=== PATIENT | female | born 1965 | race Caucasian/White ===

== ENCOUNTER 2017-09-14 19:16 | Emergency (ER) | payer SELFPAY ==
--- NOTE | 2017-09-14 19:37 | ED Physician Documentation ---
General Adult - HISTORIAN Historian: patient - HPI Stated Complaint: urinary problems Chief Complaint: Nausea,Vomiting,Diarrhea Onset: days ago (2) Timing: still present Severity: moderate Further Comments: yes (she states two days ago she started with fever "I think 99.3" and she states she has not had any food or drink to intake in over 2 days. "I cant keep anything down" She states she has lower abdominal and flank pain. She has had nausea vomiting and fever. She has not had any OTC meds. She denies any injury. no blood in urine) Last known Well Date: 09/12/17 Last Known Well Time: 08:00 Last known Well Code/Unknown Code: Unknown - ROS CONST: fever EYES/ENT: none CVS/RESP: none GI/: vomiting, nausea MS/SKIN/LYMPH: none NEURO/PSYCH: denies: headache, dizziness - PAST HX Past History: other (depression ) Other History: none Surgeries/Procedures: Immunizations: referred to PCP Allergies/Adverse Reactions: Allergies Allergy/AdvReac Type Severity Reaction Status Date / Time Penicillins Allergy Severe Anaphylaxis Verified 09/14/17 19:30 Home Medications: Ambulatory Orders Medication Instructions Recorded Albuterol Sulfate [Proair HFA] 2 inh IH Q4H PRN #1 hfa.[email or web address] 11/07/14 Citalopram Hydrobromide [Celexa] 20 mg D 11/07/14 Lisinopril [Prinivil] 10 mg PO QD #30 tablet 11/07/14 Meperidine HCl [Demerol] 50 mg PO Q6 PRN #10 tablet 04/23/16 Ondansetron HCl Rapdis [Zofran Odt] 4 mg PO Q8 #30 tab 09/14/17 - SOCIAL HX Smoking History: cigarettes Alcohol Use: none Drug Use: none - FAMILY HX Family History: No - VITAL SIGNS Vital Signs: Vital Signs Temp Pulse Resp BP Pulse Ox 98.3 F 97 H 20 144/78 99 09/14/17 19:24 09/14/17 19:24 09/14/17 19:24 09/14/17 19:24 09/14/17 19:24 - REVIEWED ASSESSMENTS Nursing Assessment Reviewed: Yes Vitals Reviewed: Yes Progress - Progress Progress: 2049: she reports her pain is still 8/10 on 1/10 scale. Sharp and cramping in nature. No change in position. DG 2144: Pain is a 3 out of 10. No nausea 2199: Pain is a 5 out of 10. Nausea is starting. She is refusing to be admitted. States she has been admitted for this before and due to insurance reasons and symptoms she does not feel she needs to be admitted. She is aware of the risk and benefits. at the bedside he is agreeable to plan to go home and care for symptoms and return for any non control of symptoms. she is aware to rest her gut. DG ED Results Lab/Radiology - Radiology Radiology Impressions: CT of the abdomen and pelvis without contrast CLINICAL HISTORY: Lower abdominal pain for 4 days. TECHNIQUE: CT of the abdomen and pelvis is performed without oral or intravenous administration of contrast. Sagittal and coronal reconstructions are performed by the technologist. FINDINGS: The visualized lung bases are clear. The liver and spleen demonstrate normal attenuation without focal defect. Gallbladder is normally distended. Pancreas is prominent with stranding in the peripancreatic fat and thickening of Gerota' s fascia on the left andthe lateroconal fascia consistent with acute pancreatitis. Kidneys are of normal size, shape and position. Vascular calcification is present in the abdominal aorta without evidence of aneurysm. There are paired inferior vena cavae below the level of the renal veins. Appendix is visualized and is within normal limits. Structures related to the gastrointestinal tract are unremarkable. Free fluid is seen in the pelvis. IMPRESSION: Acute pancreatitis. Vascular calcification. Negative appendix. Free fluid in the pelvis. Lumbar spondylosis. Electronically signed on Sep 14, 2017 9:18:21 PM TOP DISTRIBUTION EXECUTIVE by: Demetris Baxter General Adult Physical Exam - PHYSICAL EXAM GENERAL APPEARANCE: mild distress EENT: eye inspection normal CVS: reg rate & rhythm, heart sounds normal, equal pulses, no murmur ABDOMEN: soft, no organomegaly, normal bowel sounds, guarding (lower abdomen bilaterally. CVA tenderness mild bilaterally ) BACK: CVA tenderness (R), CVA tenderness (L) SKIN: warm/dry, normal color NEURO: oriented X3, CN's nml as tested, motor nml Discharge Clincal Impression: Pancreatitis Qualifiers: Chronicity: acute Pancreatitis type: other Acute pancreatitis complication: unspecified Qualified Code(s): K85.80 - Other acute pancreatitis without necrosis or infection Prescriptions: Ondansetron HCl Rapdis [Zofran Odt] 4 mg PO Q8 #30 tab Referrals: Natasha Mcpherson MD [Primary Care Provider] - 2 Days Additional Instructions: She did not want to be admitted due to finical concerns and she states she doesnt feel they could do anything for her they cannot do here. She feels that if she gets proper meds she can be ok to go home. she does understand the implications we discussed in full about admission. at bedside. She will return to ER if any concerns or she cannot control her symptoms. NPO and clear liquids as tolerated. Meds for nausea and pain. DG Condition: Stable Disposition: 01 HOME, SELF-CARE Decision to Admit: NO Date of Decison to Admit: 09/14/17 Decision Time: 22:02
[2017-09-14] MEDS ORDERED: 0.9 % SODIUM CHLORIDE 1,000 ML IV ONE (20:01)
[2017-09-14] MEDS ORDERED: KETOROLAC TROMETHAMINE 30 MG/1ML VIAL IVP ONE (20:02)
[2017-09-14 20:30] LABS: BASOPHILS % 0.2 (0.0-1.5); EOSINOPHILS % 2.8 % (0.0-6.8); MEAN CORPUSCULAR HEMOGLOBIN 34.5 pg (28.0-34.0); MONOCYTES % 5.4 % (0.0-11.0); NEUTROPHILS # 5.1 # k/uL (1.4-7.7)
[2017-09-14 20:39] LABS: eGFR (African) > 60; eGFR (Non-African) > 60
[2017-09-14] MEDS ORDERED: fentaNYL CITRATE/PF 100 MCG/ 2ML AMP IVP ONE ×2 (20:52→21:58)
--- NOTE | 2017-09-14 21:21 | Diagnostic Imaging Report ---
BAMBI RUIZ [facility] [address] [facility] [address] [place], [place]. [address] Report Submission Date: Sep 14, 2017 9:18:21 PM SCHOOL CUSTODIAN Patient Study Name: SESAR HANSON Date: Sep 14, 2017 9:00:47 PM SCHOOL CUSTODIAN Modality Type: CT\SR Gender: F Description: CT ABD & PELVIS W/O CO : 61 Institution: [facility] Physician: BAMBI RUIZ CT of the abdomen and pelvis without contrast CLINICAL HISTORY: Lower abdominal pain for 4 days. TECHNIQUE: CT of the abdomen and pelvis is performed without oral or intravenous administration of contrast. Sagittal and coronal reconstructions are performed by the technologist. FINDINGS: The visualized lung bases are clear. The liver and spleen demonstrate normal attenuation without focal defect. Gallbladder is normally distended. Pancreas is prominent with stranding in the peripancreatic fat and thickening of Gerota' s fascia on the left andthe lateroconal fascia consistent with acute pancreatitis. Kidneys are of normal size, shape and position. Vascular calcification is present in the abdominal aorta without evidence of aneurysm. There are paired inferior vena cavae below the level of the renal veins. Appendix is visualized and is within normal limits. Structures related to the gastrointestinal tract are unremarkable. Free fluid is seen in the pelvis. IMPRESSION: Acute pancreatitis. Vascular calcification. Negative appendix. Free fluid in the pelvis. Lumbar spondylosis. Electronically signed on Sep 14, 2017 9:18:21 PM SCHOOL CUSTODIAN by: Demetris LIANG
[2017-09-14] MEDS ORDERED: ONDANSETRON HCL 4 MG TAB.RAPDIS PO ONE (21:59)
[2017-09-14] MEDS ORDERED: ONDANSETRON HCL/PF 4 MG/ 2ML VIAL IVP ONE (21:59)
[2017-09-14 22:20] VITALS: BP 168/91
[2017-09-15 06:07] LABS: APPEARANCE,URINE CLEAR (CLEAR); COLOR,URINE YELLOW (YELLOW)
[2017-09-15 06:08] LABS: OCCULT BLOOD,URINE NEGATIVE (NEGATIVE); UROBILINOGEN URINE 0.2 Eu (0.2-1.0)
== END 2017-09-14 22:18 | disposition home or self-care (01) ==
LOC: ED 19:16
DX: K85.80 Other acute pancreatitis without necrosis or infection (principal)
CPT/HCPCS: 74176; 80053; 81002; 83690; 85025; 87400; J1885; J2405; J3010; J7030; 96361; 96374; 96375; 99283; S1016

== ENCOUNTER 2017-11-11 17:11 | Emergency (ER) | payer SELFPAY ==
[2017-11-11] MEDS ORDERED: PROMETHAZINE HCL 25 MG/ML VIAL IM ONE (18:05)
[2017-11-11 18:50] LABS: BASOPHILS % 0.3 (0.0-1.5); EOSINOPHILS % 1.4 % (0.0-6.8); MEAN CORPUSCULAR HEMOGLOBIN 33.6 pg (28.0-34.0); MEAN CORPUSCULAR VOLUME 97.4 fl (80.0-100.0); NEUTROPHILS # 5.8 # k/uL (1.4-7.7)
[2017-11-11 19:08] LABS: eGFR (African) > 60; eGFR (Non-African) > 60
[2017-11-11] MEDS ORDERED: SIMETHICONE 80 MG TAB.CHEW PO ONE (19:29)
--- NOTE | 2017-11-11 19:29 | ED Physician Documentation ---
Abdominal Pain - HISTORIAN Historian: patient - HPI Stated Complaint: Abdominal pain Chief Complaint: Abdominal Pain Onset: days ago (since Thursday) Duration: constant Timing: worse Context: denies: out of country travel, bad food, recent trauma Severity: severe Quality: pain Associated Symptoms: nausea. denies: fever, chills, vomiting Exacerbated by: nothing Relieved by: nothing Further Comments: yes (52 year old female patient presents with complaint of abdominal pain and abdominal cramping since Thursday. Was seen by PCP on Thursday, encouraged to use laxative. Patient reports small BM today, denies diarrhea, denies hard stool. C/O nausea, denies vomiting, fever or chills. Requesting narcotic for pain 06/30. Reports using MOM at 1330 today, small result.) - ROS CONST: no problems GI/: constipation. denies: black stools, bloody urine, bloody stools, dark urine, problems urinating CVS/RESP: none EYES/ENT: none MS/SKIN/LYMPH: none NEURO/PSYCH: none - SOCIAL HX Smoking History: cigarettes - FAMILY HX Family History: denies: none - PAST HX Past History: none Ischemic Bowel Risk Factors: none Other History: hypertension, other (depression) Home Medications: Ambulatory Orders Medication Instructions Recorded Citalopram Hydrobromide [Celexa] 20 mg D 11/07/14 Lisinopril [Prinivil] 10 mg PO QD #30 tablet 11/07/14 Promethazine HCl [Phenergan] 25 mg PO Q8H PRN #15 tablet 11/11/17 Allergies/Adverse Reactions: Allergies Allergy/AdvReac Type Severity Reaction Status Date / Time Penicillins Allergy Severe Anaphylaxis Verified 11/11/17 18:46 - VITAL SIGNS Vital Signs: Vital Signs Temp Pulse Resp BP Pulse Ox 99.6 F 82 17 140/68 98 11/11/17 17:13 11/11/17 19:52 11/11/17 19:52 11/11/17 19:52 11/11/17 19:52 - REVIEWED ASSESSMENTS Nursing Assessment Reviewed: Yes Vitals Reviewed: Yes Progress - Progress Progress: Prior to provider evaluation, patient came to desk requesting "I need pain medication now. [facility] How much longer do I have to wait?" Explained the ER was full, both nurses were with patients, she would be seen as soon as possible. Patient walked back to room, no grimacing, gait steady, upright posture. H&P completed. Patient requested "pain shot". Will medicate with promethazine for nausea and complaint of cramping. Reviewed lab and xray results with patient and , reassured pain was from gas and laxative used today. Patient requested prescription for pain medication. Encourage her to use OTC simethicone. Reviewed signs and symptoms to return to ER for. ED Results Lab/Radiology - Lab Results Lab Results: Lab Results 11/11/17 11/11/17 18:35 18:35 WBC 7.50 K/ul K/ul (4.00-12.00) RBC 4.22 M/ul M/ul (3.90-5.20) Hgb 14.2 g/dL g/dL (12.0-16.0) Hct 41.1 % % (34.5-46.5) MCV 97.4 fl fl (80.0-100.0) MCH 33.6 pg pg (28.0-34.0) MCHC 34.5 g/dL g/dL (30.0-36.0) RDW 12.6 % % (11.3-14.3) Plt Count 212 K/mm3 K/mm3 (130-400) Neut % (Auto) 76.2 % % (39.0-79.0) Lymph % (Auto) 16.7 % % (16.0-50.0) [place] % (Auto) 4.0 % % (0.0-11.0) Eos % (Auto) 1.4 % % (0.0-6.8) Baso % (Auto) 0.3 (0.0-1.5) Neut # (Auto) 5.8 # k/uL # k/uL (1.4-7.7) Lymph # (Auto) 1.3 # k/uL # k/uL (0.6-4.0) [place] # (Auto) 0.3 # k/uL # k/uL (0.0-0.9) Eos # (Auto) 0.1 # k/uL # k/uL (0.0-0.6) Baso # (Auto) 0.0 # k/uL # k/uL (0.0-0.5) Reactive Lymphs % 1.3 % % (0.0-5.0) Reactive Lymphs # 0.1 # k/uL # k/uL (0.0-0.8) Sodium 132 mmol/L L mmol/L (136-145) Potassium 3.3 mmol/L L mmol/L (3.5-5.1) Chloride 89 mmol/L L mmol/L (98-107) Carbon Dioxide 25 mmol/L mmol/L (22-30) BUN 12 mg/dL mg/dL (7-17) Creatinine 0.70 mg/dL mg/dL (0.52-1.04) Estimated Creat Clear 102 Est GFR ( Amer) > 60 (60 - ) Est GFR (Non-Af Amer) > 60 (60 - ) Glucose 85 mg/dL mg/dL (74-106) Calcium 9.6 mg/dL mg/dL (8.4-10.2) Total Bilirubin 1.3 mg/dL mg/dL (0.2-1.3) AST 34 U/L U/L (15-46) ALT 35 U/L U/L (13-69) Alkaline Phosphatase 107 U/L U/L (38-126) Total Protein 7.4 g/dL g/dL (6.3-8.2) Albumin 4.5 g/dL g/dL (3.5-5.0) - Radiology Radiology Impressions: Obstructive series, 3 images HISTORY The abdominal pain, nausea. FINDINGS Bowel gas pattern is normal. There is no obstruction, free intraperitoneal air or pathologic calcification. IMPRESSION Normal bowel gas pattern. Electronically signed on Nov 11, 2017 7:28:02 PM LOCK OPERATOR by: Geovanny Loya - Orders Orders: ED Orders Category Date Time Status Place IV Lock 1T Care 11/11/17 17:41 Active ABD COMPLETE [RAD] Stat Exams 11/11/17 Completed CBC/PLATELET/DIFF Stat Lab 11/11/17 18:35 Completed CMP Stat Lab 11/11/17 18:35 Completed Promethazine HCl [Phenergan] Med 11/11/17 18:05 Discontinued 25 mg IM NOW ONE Simethicone [Gas-X] Med 11/11/17 19:29 Discontinued 160 mg PO NOW ONE Abdominal Pain Physical Exam - Physical Exam General Appearance: mild distress EENT: eye inspection normal, CORA RESPIRATORY: no resp distress, chest non-tender, breath sounds normal CVS: reg rate & rhythm, heart sounds normal, equal pulses, no murmur, no gallop , PMI nml, no JVD, no friction rub, 24 ABDOMEN: soft, no organomegaly, normal bowel sounds (normal to hyperactive), no abdominal bruit, no distension, tenderness (c/o tenderness all over; assessment revealed negative McBurney's and negative Carmen's) SKIN: normal color, warm/dry, NR, INT, PAL, DR EXTREMITIES: non-tender, normal range of motion, no evidence of injury, no edema , J, TURNTABLE OPERATOR NEURO: oriented X3, CN's nml as tested, motor nml, sensation nml Vital Signs: Vital Signs Temp Pulse Resp BP Pulse Ox 99.6 F 82 17 140/68 98 11/11/17 17:13 11/11/17 19:52 11/11/17 19:52 11/11/17 19:52 11/11/17 19:52 Discharge Clincal Impression: Gas pain Abdominal pain Qualifiers: Abdominal location: generalized Qualified Code(s): R10.84 - Generalized abdominal pain Prescriptions: Promethazine HCl [Phenergan] 25 mg PO Q8H PRN #15 tablet PRN Reason: Nausea / Vomiting Referrals: Natasha Mcpherson MD [Primary Care Provider] - 2 Days Additional Instructions: Use over the counter Gas-ex, simethicone or beano as needed for pain per package instruction. . Diet: Clear liquids Sprite/7-up Juices apple, white grape Gatorade/Powerade Jello Popsicles When tolerating clear liquids, advance to bland/brat diet - such as crackers, rice, Bananas, apples/applesauce or toast Return to the emergency department or call your doctor, if you are having severe abdominal pain, fever >101.0, or if there is blood in the vomit or diarrhea, or you cannot keep down liquids or solid food. Condition: Stable Disposition: 01 HOME, SELF-CARE Decision to Admit: NO Decision Time: 19:29
--- NOTE | 2017-11-11 19:35 | Diagnostic Imaging Report ---
COTY DUMONT (LENS MOUNTER) - ER [facility] [address] [facility].[address] [address] Report Submission Date: Nov 11, 2017 7:28:02 PM CHINESE LANGUAGE PROFESSOR Patient Study Name: SESAR HANSON Date: Nov 11, 2017 7:10:27 PM CHINESE LANGUAGE PROFESSOR Modality Type: DX Gender: F Description: ABDOMEN : 61 Institution: [facility] Physician: COTY DUMONT (LENS MOUNTER) - ER Obstructive series, 3 images HISTORY The abdominal pain, nausea. FINDINGS Bowel gas pattern is normal. There is no obstruction, free intraperitoneal air or pathologic calcification. IMPRESSION Normal bowel gas pattern. Electronically signed on Nov 11, 2017 7:28:02 PM CHINESE LANGUAGE PROFESSOR by: Geovanny LIANG
[2017-11-11 19:54] VITALS: BP 140/68
== END 2017-11-11 19:52 | disposition home or self-care (01) ==
LOC: ED 17:11
DX: R10.84 Generalized abdominal pain (principal); R14.3 Flatulence
CPT/HCPCS: 74019; 80053; 85025; 99282; S1016

== ENCOUNTER 2018-11-23 20:39 | Inpatient (IN) | payer SELFPAY ==
[2018-11-23] MEDS ORDERED: ONDANSETRON HCL/PF 4 MG/ 2ML VIAL IVP ONE (21:05)
[2018-11-23] MEDS ORDERED: fentaNYL CITRATE/PF 100 MCG/2 ML INJ. IV ONE ×2 (21:37→23:38)
[2018-11-23] MEDS ORDERED: 0.9 % SODIUM CHLORIDE 1,000 ML IV ONE (21:37)
[2018-11-23 22:05] LABS: BASOPHILS % 0.3 (0.0-1.5); EOSINOPHILS % 5.3 % (0.0-6.8); MONOCYTES % 4.5 % (0.0-11.0); NEUTROPHILS # 4.4 # k/uL (1.4-7.7)
[2018-11-23 22:11] LABS: eGFR (Non-African) > 60
--- NOTE | 2018-11-23 22:21 | ED Physician Documentation ---
Abdominal Pain - HISTORIAN Historian: patient - HPI Stated Complaint: N/V with stomach pains Chief Complaint: Abdominal Pain Additonal Information: Report Submission Date: Nov 23, 2018 11:36:37 PM MILL FEEDER Patient Study Name: SESAR HANSON Date: Nov 23, 2018 10:40:20 PM MILL FEEDER Modality Type: CT\SR Gender: F Description: CT ABD PELVIS W/ CON Onset: days ago (2) Duration: constant Timing: worse Context: denies: out of country travel, bad food Severity: severe Quality: pain, sharp, stabbing Associated Symptoms: chills, nausea, vomiting Exacerbated by: food Relieved by: nothing - ROS CONST: no problems GI/: denies: constipation CVS/RESP: none EYES/ENT: none MS/SKIN/LYMPH: denies: leg swelling NEURO/PSYCH: headache - SOCIAL HX Smoking History: cigarettes Alcohol Use: none Drug Use: none - FAMILY HX Family History: none - PAST HX Past History: other (pancreatitis) Ischemic Bowel Risk Factors: none Other History: none Home Medications: Ambulatory Orders Medication Instructions Recorded Citalopram Hydrobromide [Celexa] 20 mg PO D 11/07/14 Trazodone HCl 50 mg PO HS 11/23/18 Allergies/Adverse Reactions: Allergies Allergy/AdvReac Type Severity Reaction Status Date / Time Penicillins Allergy Severe Anaphylaxis Verified 11/23/18 22:21 - VITAL SIGNS Vital Signs: Vital Signs Temp Pulse Resp BP Pulse Ox 98.4 F 70 14 181/86 99 11/23/18 20:39 11/23/18 20:39 11/23/18 20:39 11/23/18 20:39 11/23/18 20:39 - REVIEWED ASSESSMENTS Nursing Assessment Reviewed: Yes Vitals Reviewed: Yes Progress - Progress Progress: 0112 Discussed with June Calixto NP, agrees with admission. ED Results Lab/Radiology - Lab Results Lab Results: Lab Results 11/23/18 11/23/18 11/23/18 22:55 21:50 21:50 WBC RBC Hgb Hct MCV MCH MCHC RDW Plt Count Neut % (Auto) Lymph % (Auto) [place] % (Auto) Eos % (Auto) Baso % (Auto) Neut # (Auto) Lymph # (Auto) [place] # (Auto) Eos # (Auto) Baso # (Auto) Sodium Potassium Chloride Carbon Dioxide BUN Creatinine Est GFR ( Amer) Est GFR (Non-Af Amer) Glucose Calcium Total Bilirubin AST ALT Alkaline Phosphatase Troponin I < 0.03 ng/mL L ng/mL (0.03-0.06) Total Protein Albumin Lipase 567 U/L H U/L (23-300) Urine Color Yellow (YELLOW) Urine Appearance Clear (CLEAR) Urine pH 7.0 (5.0 - 8.0) Ur Specific [place] 1.020 (1.010-1.030) Urine Protein Negative mg/dL mg/dL (NEGATIVE) Urine Ketones 2+ mg/dL H mg/dL (NEGATIVE) Urine Occult Blood Trace-intact H (NEGATIVE) Urine Nitrite Negative (NEGATIVE) Urine Bilirubin Negative (NEGATIVE) Urine Urobilinogen 0.2 Eu Eu (0.2-1.0) Ur Leukocyte Esterase Negative (NEGATIVE) Urine Glucose Negative mg/dL mg/dL (NEGATIVE) 11/23/18 11/23/18 21:50 21:50 WBC 5.90 K/ul K/ul (4.00-12.00) RBC 3.57 M/ul L M/ul (3.90-5.20) Hgb 12.1 g/dL g/dL (12.0-16.0) Hct 36.8 % % (34.5-46.5) MCV 103.0 fl H fl (80.0-100.0) MCH 34.0 pg pg (28.0-34.0) MCHC 32.9 g/dL g/dL (30.0-36.0) RDW 14.9 % H % (11.3-14.3) Plt Count 222 K/mm3 K/mm3 (130-400) Neut % (Auto) 74.7 % % (39.0-79.0) Lymph % (Auto) 15.2 % L % (16.0-50.0) [place] % (Auto) 4.5 % % (0.0-11.0) Eos % (Auto) 5.3 % % (0.0-6.8) Baso % (Auto) 0.3 (0.0-1.5) Neut # (Auto) 4.4 # k/uL # k/uL (1.4-7.7) Lymph # (Auto) 0.9 # k/uL # k/uL (0.6-4.0) [place] # (Auto) 0.3 # k/uL # k/uL (0.0-0.9) Eos # (Auto) 0.3 # k/uL # k/uL (0.0-0.6) Baso # (Auto) 0.0 # k/uL # k/uL (0.0-0.5) Sodium 135 mmol/L L mmol/L (136-145) Potassium 3.6 mmol/L mmol/L (3.5-5.1) Chloride 100 mmol/L mmol/L (98-107) Carbon Dioxide 27 mmol/L mmol/L (22-30) BUN 5 mg/dL L mg/dL (7-17) Creatinine 0.42 mg/dL L mg/dL (0.52-1.04) Est GFR ( Amer) > 60 (60 - ) Est GFR (Non-Af Amer) > 60 (60 - ) Glucose 122 mg/dL H mg/dL (74-106) Calcium 8.6 mg/dL mg/dL (8.4-10.2) Total Bilirubin 0.9 mg/dL mg/dL (0.2-1.3) AST 21 U/L U/L (15-46) ALT 19 U/L U/L (13-69) Alkaline Phosphatase 115 U/L U/L (38-126) Troponin I Total Protein 6.0 g/dL L g/dL (6.3-8.2) Albumin 3.8 g/dL g/dL (3.5-5.0) Lipase Urine Color Urine Appearance Urine pH Ur Specific [place] Urine Protein Urine Ketones Urine Occult Blood Urine Nitrite Urine Bilirubin Urine Urobilinogen Ur Leukocyte Esterase Urine Glucose - Radiology Radiology Impressions: Report Submission Date: Nov 23, 2018 11:36:37 PM MILL FEEDER Patient Study Name: SESAR HANSON Date: Nov 23, 2018 10:40:20 PM MILL FEEDER Modality Type: CT\SR Gender: F Description: CT ABD PELVIS W/ CON : 61 Institution: [facility] Physician: WALT POLK CT abdomen and pelvis with contrast History: Epigastric pain and elevated lipase Technique: Helically acquired images were obtained from the hemidiaphragms to the pelvic floor the following IV but no oral contrast. Findings: There is ascites adjacent to both the liver and the spleen. The liver is diffusely low in attenuation consistent with hepatic steatosis. No focal hepatic masses are noted. No gallstones are seen. The spleen is normal in size. The pancreas is abnormal. At the head to proximal body of the pancreas, there is a large cyst measuring 4.0 x 4.3 cm in greatest dimension. Within the tail of pancreas, there is a 2 cm cyst. Between the tail of the pancreas and the stomach, there is a 4.0 x 3.0 cm cyst. The adjacent gastric wall enhances to a greater degree than typical, suggesting gastritis, possibly reactive to the adjacent process. These multifocal cystic masses of the pancreas are most consistent with multifocal pseudocysts in this patient with elevated lipase. The adrenal glands and kidneys are unremarkable. Small and large bowel loops are normal in caliber. There is a small amount of ascites extending into the pelvis. The abdominal aorta is heavily atherosclerotic but not aneurysmal. The uterus, adnexa and bladder are unremarkable. Lung bases are clear. Findings consistent with degenerative disc disease are present at L1/2 and L2/3. Impression: There is ascites adjacent to both liver and spleen and tracking into the pelvis. Hepatic steatosis. The pancreas is abnormal. As described in the body of the report, there is a large cyst at the pancreatic head to proximal body. There is a cyst in the pancreatic tail and there is a cyst between the pancreatic tail and stomach. These cystic lesions are consistent with multiple pseudocysts. The gastric rugae enhance to a greater degree than typical, suggesting gastritis,which may be reactive to the adjacent pseudocyst. Heavy aortic atherosclerosis. Follow-up imaging to ensure resolution of all of the cystic lesions would be recommended. Electronically signed on Nov 23, 2018 11:36:37 PM MILL FEEDER by: Suad Jones - Orders Orders: ED Orders Category Date Time Status Place IV Lock 1T Care 11/23/18 21:[address] ABD & PELVIS W/ CON Stat Exams 11/23/18 Taken CBC/PLATELET/DIFF Routine Lab 11/23/18 21:50 Completed CMP Routine Lab 11/23/18 21:50 Completed LIPASE Stat Lab 11/23/18 21:50 Completed TROPONIN I (cTnI) Stat Lab 11/23/18 21:50 Completed UA MACRO DIP ONLY Routine Lab 11/23/18 22:55 Completed 0.9 % Sodium Chloride [Normal Saline] 1,000 ml Med 11/23/18 21:37 Discontinued IV Q1H Ondansetron HCl/Pf [Zofran] Med 11/23/18 21:05 Discontinued 4 mg IVP NOW ONE fentaNYL CITRATE/PF [Sublimaze] Med 11/23/18 21:37 Discontinued 25 mcg IV NOW ONE fentaNYL CITRATE/PF [Sublimaze] Med 11/23/18 23:38 Discontinued 25 mcg IV NOW ONE Abdominal Pain Physical Exam - Physical Exam General Appearance: mild distress EENT: CORA NECK: supple RESPIRATORY: no resp distress, chest non-tender, breath sounds normal CVS: tachycardia ABDOMEN: tenderness (epigastric), distended BACK: no CVA tenderness SKIN: warm/dry EXTREMITIES: non-tender NEURO: oriented X3, mood/affect nml Vital Signs: Vital Signs Temp Pulse Resp BP Pulse Ox 98.4 F 70 14 181/86 99 11/23/18 20:39 11/23/18 20:39 11/23/18 20:39 11/23/18 20:39 11/23/18 20:39 Discharge Clincal Impression: Pancreatitis, acute Qualifiers: Pancreatitis type: unspecified pancreatitis type Acute pancreatitis complication: no infection or necrosis Qualified Code(s): K85.90 - Acute pancreatitis without necrosis or infection, unspecified Referrals: Natasha Mcpherson MD [Primary Care Provider] - 2 Days Condition: Fair Disposition: ADMITTED INPATIENT Decision to Admit: [id number] Date of Decison to Admit: 11/24/18 Decision Time: 01:13
[2018-11-23 23:31] LABS: APPEARANCE,URINE CLEAR (CLEAR); COLOR,URINE YELLOW (YELLOW); OCCULT BLOOD,URINE TRACE-INTACT (NEGATIVE); UROBILINOGEN URINE 0.2 Eu (0.2-1.0)
[2018-11-24] MEDS ORDERED: fentaNYL CITRATE/PF 100 MCG/2 ML INJ. IV ONE (01:14)
[2018-11-24] MEDS ORDERED: ONDANSETRON HCL/PF 4 MG/ 2ML VIAL IVP PRN (01:55)
[2018-11-24] MEDS ORDERED: HYDROmorphone HCL/PF 1 MG/ML VIAL IVP PRN (01:55)
[2018-11-24] MEDS ORDERED: HYDROmorphone HCL/PF 2 MG/ML VIAL ONE (02:17)
[2018-11-24] MEDS: 0.9 % SODIUM CHLORIDE 1,000 ML IV SCH ×3 (02:20→22:37)
[2018-11-24 02:57] VITALS: BMI 20.8
--- NOTE | 2018-11-24 06:20 | Diagnostic Imaging Report ---
[place] [facility] [address] [facility] [address] [place], [place]. [address] Report Submission Date: Nov 23, 2018 11:36:37 PM HEAD USHER Patient Study Name: SESAR HANSON Date: Nov 23, 2018 10:40:20 PM HEAD USHER Modality Type: CT\SR Gender: F Description: CT ABD PELVIS W/ CON : 61 Institution: [facility] Physician: WALT POLK CT abdomen and pelvis with contrast History: Epigastric pain and elevated lipase Technique: Helically acquired images were obtained from the hemidiaphragms to the pelvic floor the following IV but no oral contrast. Findings: There is ascites adjacent to both the liver and the spleen. The liver is diffusely low in attenuation consistent with hepatic steatosis. No focal hepatic masses are noted. No gallstones are seen. The spleen is normal in size. The pancreas is abnormal. At the head to proximal body of the pancreas, there is a large cyst measuring 4.0 x 4.3 cm in greatest dimension. Within the tail of pancreas, there is a 2 cm cyst. Between the tail of the pancreas and the stomach, there is a 4.0 x 3.0 cm cyst. The adjacent gastric wall enhances to a greater degree than typical, suggesting gastritis, possibly reactive to the adjacent process. These multifocal cystic masses of the pancreas are most consistent with multifocal pseudocysts in this patient with elevated lipase. The adrenal glands and kidneys are unremarkable. Small and large bowel loops are normal in caliber. There is a small amount of ascites extending into the pelvis. The abdominal aorta is heavily atherosclerotic but not aneurysmal. The uterus, adnexa and bladder are unremarkable. Lung bases are clear. Findings consistent with degenerative disc disease are present at L1/2 and L2/3. Impression: There is ascites adjacent to both liver and spleen and tracking into the pelvis. Hepatic steatosis. The pancreas is abnormal. As described in the body of the report, there is a large cyst at the pancreatic head to proximal body. There is a cyst in the pancreatic tail and there is a cyst between the pancreatic tail and stomach. These cystic lesions are consistent with multiple pseudocysts. The gastric rugae enhance to a greater degree than typical, suggesting gastritis,which may be reactive to the adjacent pseudocyst. Heavy aortic atherosclerosis. Follow-up imaging to ensure resolution of all of the cystic lesions would be recommended. Electronically signed on Nov 23, 2018 11:36:37 PM HEAD USHER by: Suad LIANG
[2018-11-24] MEDS ORDERED: PANTOPRAZOLE SODIUM INJ. 40 MG VIAL ONE (06:38)
[2018-11-24] MEDS ORDERED: SODIUM CHLORIDE IV ONE (06:39)
[2018-11-24] MEDS ORDERED: WATER FOR INJECTION,STERILE 20 ML VIAL IJ ONE (06:41)
[2018-11-24] MEDS ORDERED: 0.9 % SODIUM CHLORIDE 100 ML IV ONE (06:43)
[2018-11-24] MEDS: PANTOPRAZOLE SODIUM 80 MG in 0.9 % SODIUM CHLORIDE 50 ML IV SCH (06:56)
--- NOTE | 2018-11-24 07:37 | History and Physical Report ---
History of Present Illnes - History of Present Illness Reason for Visit: Abdominal pain with nausea, vomiting, and diarrhea History of Present Illness: Patient is a 53-year-old female that presented to the ER last night with "severe" abdominal that she described as sharp and stabbing with a 2 day history of nausea, vomiting, and diarrhea. Patient was noted to be dehydrated and 1 liter of NS was given along with Zofran IVP for her nausea and vomiting. She also received a 100mcg of Fentanyl in the ER with c/o abdominal pain of 10/10. She denied alcohol use in the ER but history suggested alcohol use and patient admitted to alcohol use this morning. She has received Dilaudid every 4 hours thru the night for abdominal pain- pt appears to be comfortable this morning- however, she is requesting pain medications. Patient states that vomiting is gone but she still has some nausea. Discussed with patient again; her results of her CT and the effects that are being caused to her pancreas. She voiced understanding- we will continue to keep patient NPO this morning and give IVF for hydration- she is receiving protonix IV for abdominal discomfort, Zofran 4 mg IV for nausea and vomiting, and Dilaudid every 4 hrs. for abdominal pain. Patient is also noted to have an elevated blood pressure- we will monitor closely. - Past Medical History Cardiac: HTN (history of HTN- states she does not take meds anymore) Gastrointestinal: Gastritis, Other (Pancreatitis) Psych: Anxiety, Depression Renal/: Acute renal failure - Past Surgical History Past Surgical History: (x1) - Past Social History Smoke: 1 pack per day Alcohol: Heavy Drugs: None Lives: With Family Domestic Violence: Negative - Health Maintenance Health Maintenance: denies: Influenza Vaccine Influenza Vaccine: No (refused influenza) Pneumonia Vaccine: Yes Resuscitation Status: Resusciation Status Resuscitation Status Full Code - Unable to Obtain History Unable to Obtain: No Review of Systems - Review of Systems Constitutional: Fever, Chills, Weakness Eyes: negative: pain, vision change ENT: negative: Ear Pain, Ear Discharge, Throat Pain Respiratory: negative: Cough, Dry, Shortness of Breath Cardiovascular: Light Headedness. negative: Chest Pain, Palpitations Gastrointestinal: Nausea, Vomiting, Abdominal Pain, Diarrhea Genitourinary: negative: Dysuria Musculoskeletal: negative: Back Pain Skin: negative: Rash Neurological: Weakness - Medications/Allergies Allergies/Adverse Reactions: Allergies Allergy/AdvReac Type Severity Reaction Status Date / Time Penicillins Allergy Severe Anaphylaxis Verified 11/23/18 22:21 Home Medications: Home Medications RX: Trazodone HCl 50 mg PO HS 11/23/18 Current Inpatient Medications: Current Inpatient Medications Citalopram Hydrobromide (Celexa) 20 mg PO D [facility] Enoxaparin Sodium (Lovenox) 30 mg SQ DAILY [facility] Stop: 12/08/18 08:59 Hydromorphone HCl (Dilaudid) 1 mg IVP Q4H PRN PRN Reason: pain Last Admin: 11/24/18 02:15 Dose: 1 mg Sodium Chloride (Normal Saline) 1,000 mls @ 125 mls/hr IV Q10H [facility]ATHER Last Admin: 11/24/18 02:20 Dose: 125 mls/hr Pantoprazole Sodium 80 mg/ (Sodium Chloride) 50 mls @ 100 mls/hr IV 0700 [facility] Last Admin: 11/24/18 06:56 Dose: 100 mls/hr Nicotine (Habitrol 14mg) 1 patch TD DAILY [facility] Ondansetron HCl (Zofran) 4 mg IVP Q6H PRN PRN Reason: Nausea / Vomiting Trazodone HCl (Desyrel) 50 mg PO [facility] Exam - Exam Vital Signs: Vital Signs (72 hours) 11/23/18 11/24/18 11/24/18 20:39 01:22 02:00 Temperature 98.4 F 97.5 F L Pulse Rate [ 70 73 70 Left Pulse ox] Respiratory 14 14 16 Rate Blood Pressure 150/83 [Left Arm] Blood Pressure 181/86 175/94 [Right Arm] O2 Sat by Pulse 99 98 99 Oximetry 11/24/18 11/24/18 11/24/18 02:41 03:08 06:00 Temperature 97.5 F L 97.8 F Pulse Rate [ 70 70 72 Left Pulse ox] Respiratory 16 16 16 Rate Blood Pressure 159/88 [Left Arm] Blood Pressure 150/83 [Right Arm] O2 Sat by Pulse 99 99 Oximetry 11/24/18 06:21 Temperature Pulse Rate [ 72 Left Pulse ox] Respiratory Rate Blood Pressure [Left Arm] Blood Pressure [Right Arm] O2 Sat by Pulse Oximetry General: Alert, Oriented to Person, Oriented to Place, Oriented to Time, Mild distress HEENT: PERRLA, EOMI, Mouth Mucous membr. moist/[place], Nose Mucous membr. moist/[place] Neck: Normal Range of Motion Carotids: No bruit Lungs: Clear to auscultation, Normal air movement, Speaks full Sentences Cardiovascular: Regular rate, Normal S1, Normal S2 Peripheral Edema: None Peripheral Pulses: 2+ Abdomen: Soft, Other (tenderness on palpation), Decreased Bowel Sounds Integumentary: Warm, Dry, Pale Extremities: Normal pulses, No tenderness/swelling Neurological: Normal speech, Strength Equal Bilat, Sensation intact Psych/Mental Status: Appropriate Affect - Laboratory Results Laboratory Results: Laboratory Results 11/23/18 11/23/18 11/23/18 21:50 21:50 21:50 WBC 5.90 RBC 3.57 L Hgb 12.1 Hct 36.8 MCV 103.0 H MCH 34.0 MCHC 32.9 RDW 14.9 H Plt Count 222 Neut % (Auto) 74.7 Lymph % (Auto) 15.2 L [place] % (Auto) 4.5 Eos % (Auto) 5.3 Baso % (Auto) 0.3 Neut # (Auto) 4.4 Lymph # (Auto) 0.9 [place] # (Auto) 0.3 Eos # (Auto) 0.3 Baso # (Auto) 0.0 Sodium 135 L Potassium 3.6 Chloride 100 Carbon Dioxide 27 BUN 5 L Creatinine 0.42 L Est GFR ( Amer) > 60 Est GFR (Non-Af Amer) > 60 Glucose 122 H Calcium 8.6 Total Bilirubin 0.9 AST 21 ALT 19 Alkaline Phosphatase 115 Troponin I Total Protein 6.0 L Albumin 3.8 Lipase 567 H Urine Color Urine Appearance Urine pH Ur Specific [place] Urine Protein Urine Ketones Urine Occult Blood Urine Nitrite Urine Bilirubin Urine Urobilinogen Ur Leukocyte Esterase Urine Glucose 11/23/18 11/23/18 21:50 22:55 WBC RBC Hgb Hct MCV MCH MCHC RDW Plt Count Neut % (Auto) Lymph % (Auto) [place] % (Auto) Eos % (Auto) Baso % (Auto) Neut # (Auto) Lymph # (Auto) [place] # (Auto) Eos # (Auto) Baso # (Auto) Sodium Potassium Chloride Carbon Dioxide BUN Creatinine Est GFR ( Amer) Est GFR (Non-Af Amer) Glucose Calcium Total Bilirubin AST ALT Alkaline Phosphatase Troponin I < 0.03 L Total Protein Albumin Lipase Urine Color Yellow Urine Appearance Clear Urine pH 7.0 Ur Specific [place] 1.020 Urine Protein Negative Urine Ketones 2+ H Urine Occult Blood Trace-intact H Urine Nitrite Negative Urine Bilirubin Negative Urine Urobilinogen 0.2 Ur Leukocyte Esterase Negative Urine Glucose Negative Assessment/Plan - Assessment/Plan (1) Pancreatitis, acute Status: Acute Current Visit: Yes Qualifiers: Pancreatitis type: unspecified pancreatitis type Acute pancreatitis complication: no infection or necrosis Qualified Code(s): K85.90 - Acute pancreatitis without necrosis or infection, unspecified Plan: Will keep patient NPO, IVF for hydration due to NPO status with nausea, Will give Protonix IV for GI upset, IV pain meds for abdominal pain, will monitor lab work. (2) Dehydration Status: Acute Current Visit: Yes Plan: Will give IVFs- patient will remain NPO (3) Nausea & vomiting Status: Acute Current Visit: Yes Qualifiers: Vomiting type: bilious vomiting Qualified Code(s): R11.14 - Bilious vomiting Plan: Will give IVFs, IV antiemetics, and IV Protonix (4) Anxiety and depression Status: Acute Current Visit: Yes Plan: Will continue with home medications as patient tolerated VTE Assessment - RISK FACTOR SCORE VTE RISK FACTOR SCORES: AGE 40-60 YEARS, SMOKER - RISK VTE MODERATE RISK: SCORE OF 2 (RISK PROXIMAL DVT 2-4%) PROPHYAXIS NEEDED (Lovenox daily)
[2018-11-24 08:06] LABS: BASOPHILS % 0.3 (0.0-1.5); EOSINOPHILS % 7.1 % (0.0-6.8); MEAN CORPUSCULAR HEMOGLOBIN 34.3 pg (28.0-34.0); MONOCYTES % 7.2 % (0.0-11.0); NEUTROPHILS # 3.9 # k/uL (1.4-7.7)
[2018-11-24] MEDS: HYDROmorphone HCL/PF 2 MG/ML VIAL IVP PRN ×4 (08:19→23:49)
[2018-11-24] MEDS: CITALOPRAM HYDROBROMIDE 20 MG TABLET PO SCH (08:23)
[2018-11-24 08:25] LABS: eGFR (Non-African) > 60
[2018-11-24] MEDS: NICOTINE 14mg PATCH.TD24 TD SCH ×2 (08:25→10:14)
[2018-11-24] MEDS: ENOXAPARIN SODIUM 30 MG/0.3 ML DISP.SYRIN SQ SCH (08:25)
[2018-11-24] MEDS: traZODone HCL 50 MG TABLET PO SCH (20:44)
[2018-11-25] MEDS: 0.9 % SODIUM CHLORIDE 1,000 ML IV SCH (04:19)
[2018-11-25] MEDS: HYDROmorphone HCL/PF 2 MG/ML VIAL IVP PRN ×2 (05:27→12:41)
[2018-11-25] MEDS: PANTOPRAZOLE SODIUM 80 MG in 0.9 % SODIUM CHLORIDE 50 ML IV SCH (06:16)
[2018-11-25 07:27] LABS: eGFR (Non-African) > 60
[2018-11-25] MEDS: ENOXAPARIN SODIUM 30 MG/0.3 ML DISP.SYRIN SQ SCH (09:13)
[2018-11-25] MEDS: NICOTINE 14mg PATCH.TD24 TD SCH (09:14)
[2018-11-25] MEDS: CITALOPRAM HYDROBROMIDE 20 MG TABLET PO SCH (09:16)
[2018-11-25] MEDS: traZODone HCL 50 MG TABLET PO SCH (19:45)
[2018-11-25] MEDS: KETOROLAC TROMETHAMINE 30 MG/1ML VIAL IV PRN (19:49)
[2018-11-26] MEDS: KETOROLAC TROMETHAMINE 30 MG/1ML VIAL IV PRN ×2 (02:48→08:29)
--- NOTE | 2018-11-26 04:57 | Inpatient Progress Note ---
Subjective - Required Recertification Statement I anticipate X number of days because-include discharge plan: 1 - Review of Systems Events since last encounter: Patient has been NPO- she had labs drawn this morning which showed a blood sugar in the upper 30s- nursing had patient drink OJ with sugar- she did very well and blood sugar bumped up to 72. Lipase was back to normal this morning. We will start advancing her diet as tolerated. She has not required anything for nausea or vomiting. She has been requiring IV pain medication every 4 hours- we will discontinue Dilaudid and decrease patient to IV Toradol- we will get patient up today and walk- she is continuing to use incentive spirometer. We will continue with IVF's, will start checking blood sugars every 6 hours- no future concern of hypoglycemia due to allowing patient to start eating today and we will monitor for increasing abdominal pain, nausea or vomiting. General: Night Sweats, Malaise HEENT: Denies: Head Aches, Visual Changes Pulmonary: Cough (occasional- using incentive spirometer). Denies: Dyspnea Cardiovascular: Light Headedness (with low blood sugar) Gastrointestinal: Abdominal Pain (improving). Denies: Nausea, Vomiting, Diarrhea Genitourinary: Denies: Dysuria Musculoskeletal: Denies: Back Pain Neurological: Denies: Weakness, Seizures Objective - Exam Vitals and I&O: Vital Signs Temp 97.3 F L 11/26/18 01:56 Pulse 88 11/26/18 02:40 Resp 18 11/26/18 02:40 BP 156/85 11/26/18 01:56 Pulse Ox 99 11/26/18 01:56 Intake & Output 11/25/18 11/25/18 11/26/18 11:59 23:59 11:59 Intake Total 60 250 10 Output Total 675 200 Balance -615 50 10 Intake: IV 10 10 Right Forearm 10 10 Oral 60 240 Output: Urine 675 200 Other: Voiding Method Toilet Toilet Toilet # Voids 1 # Bowel Movements 0 General: Alert, Oriented to Person, Oriented to Place, Oriented to Time, Cooperative, No acute distress HEENT: PERRLA, Mouth Mucous membr. moist/[place], Nose Mucous membr. moist/[place] Neck: Supple, +2 carotid pulse wo bruit Lungs: Normal air movement, Speaks full Sentences, Rhonchi (scattered throughout- using incentive spirometer) Cardiovascular: Regular rate, Normal S1, Normal S2 Abdomen: Normal bowel sounds, Soft, No tenderness. No: Distended Extremities: No edema, Normal pulses, No tenderness/swelling Skin: Warm, Dry, Pale Neurological: Normal gait, Normal speech, Strength Equal Bilat, Normal tone, Sensation intact Psych/Mental Status: Mental status NL, Mood NL, Appropriate Affect - Results Results: Laboratory Results WBC 6.50 K/ul (4.00-12.00) 11/24/18 06:00 RBC 3.46 M/ul (3.90-5.20) L 11/24/18 06:00 Hgb 11.9 g/dL (12.0-16.0) L 11/24/18 06:00 Hct 35.9 % (34.5-46.5) 11/24/18 06:00 MCV 104.0 fl (80.0-100.0) H 11/24/18 06:00 MCH 34.3 pg (28.0-34.0) H 11/24/18 06:00 MCHC 33.0 g/dL (30.0-36.0) 11/24/18 06:00 RDW 14.9 % (11.3-14.3) H 11/24/18 06:00 Plt Count 205 K/mm3 (130-400) 11/24/18 06:00 Neut % (Auto) 59.8 % (39.0-79.0) 11/24/18 06:00 Lymph % (Auto) 25.6 % (16.0-50.0) 11/24/18 06:00 [place] % (Auto) 7.2 % (0.0-11.0) 11/24/18 06:00 Eos % (Auto) 7.1 % (0.0-6.8) H 11/24/18 06:00 Baso % (Auto) 0.3 (0.0-1.5) 11/24/18 06:00 Neut # (Auto) 3.9 # k/uL (1.4-7.7) 11/24/18 06:00 Lymph # (Auto) 1.7 # k/uL (0.6-4.0) 11/24/18 06:00 [place] # (Auto) 0.5 # k/uL (0.0-0.9) 11/24/18 06:00 Eos # (Auto) 0.5 # k/uL (0.0-0.6) 11/24/18 06:00 Baso # (Auto) 0.0 # k/uL (0.0-0.5) 11/24/18 06:00 Sodium 139 mmol/L (136-145) 11/25/18 05:00 Potassium 3.2 mmol/L (3.5-5.1) L 11/25/18 05:00 Chloride 104 mmol/L (98-107) 11/25/18 05:00 Carbon Dioxide 19 mmol/L (22-30) L 11/25/18 05:00 BUN 8 mg/dL (7-17) 11/25/18 05:00 Creatinine 0.48 mg/dL (0.52-1.04) L 11/25/18 05:00 Estimated Creat Clear 135 11/25/18 05:00 Est GFR ( Amer) > 60 (60-) 11/25/18 05:00 Est GFR (Non-Af Amer) > 60 (60-) 11/25/18 05:00 Glucose 38 mg/dL (74-106) L* 11/25/18 05:00 Calcium 8.2 mg/dL (8.4-10.2) L 11/25/18 05:00 Total Bilirubin 0.9 mg/dL (0.2-1.3) 11/25/18 05:00 AST 21 U/L (15-46) 11/25/18 05:00 ALT 17 U/L (13-69) 11/25/18 05:00 Alkaline Phosphatase 91 U/L (38-126) 11/25/18 05:00 Troponin I < 0.03 ng/mL (0.03-0.06) L 11/23/18 21:50 Total Protein 5.4 g/dL (6.3-8.2) L 11/25/18 05:00 Albumin 3.2 g/dL (3.5-5.0) L 11/25/18 05:00 Lipase 188 U/L (23-300) 11/25/18 05:00 Urine Color Yellow (YELLOW) 11/23/18 22:55 Urine Appearance Clear (CLEAR) 11/23/18 22:55 Urine pH 7.0 (5.0 - 8.0) 11/23/18 22:55 Ur Specific [place] 1.020 (1.010-1.030) 11/23/18 22:55 Urine Protein Negative mg/dL (NEGATIVE) 11/23/18 22:55 Urine Ketones 2+ mg/dL (NEGATIVE) H 11/23/18 22:55 Urine Occult Blood Trace-intact (NEGATIVE) H 11/23/18 22:55 Urine Nitrite Negative (NEGATIVE) 11/23/18 22:55 Urine Bilirubin Negative (NEGATIVE) 11/23/18 22:55 Urine Urobilinogen 0.2 Eu (0.2-1.0) 11/23/18 22:55 Ur Leukocyte Esterase Negative (NEGATIVE) 11/23/18 22:55 Urine Glucose Negative mg/dL (NEGATIVE) 11/23/18 22:55 Ethyl Alcohol < 10.0 mg/dL (0.0-10.0) 11/24/18 Unknown Assessment/Plan - Assessment/Plan (1) Pancreatitis, acute Status: Acute Current Visit: Yes Qualifiers: Pancreatitis type: unspecified pancreatitis type Acute pancreatitis complication: no infection or necrosis Qualified Code(s): K85.90 - Acute pancreatitis without necrosis or infection, unspecified Assessment: Patient had a low blood sugar of 30s- corrected with OJ and sugar- we will advance diet IV pain med switched from dilaudid to toradol IVF continued- will stop once patient is tolerating diet. (2) Dehydration Status: Acute Current Visit: Yes Plan: Will continue IVF until patient is tolerating diet (3) Nausea & vomiting Status: Acute Current Visit: Yes Qualifiers: Vomiting type: bilious vomiting Qualified Code(s): R11.14 - Bilious vomiting Plan: Appears to be controlled- will advance diet today- will treat nausea and vomiting if arises (4) Anxiety and depression Status: Acute Current Visit: Yes Plan: Stable on home medications
--- NOTE | 2018-11-26 05:01 | Discharge Summary ---
Discharge Summary - Discharge Sumary History of Present Illness: Patient is a 53-year-old female that presented to the ER last night with "severe" abdominal that she described as sharp and stabbing with a 2 day history of nausea, vomiting, and diarrhea. Patient was noted to be dehydrated and 1 liter of NS was given along with Zofran IVP for her nausea and vomiting. She also received a 100mcg of Fentanyl in the ER with c/o abdominal pain of 10/10. She denied alcohol use in the ER but history suggested alcohol use and patient admitted to alcohol use this morning. She has received Dilaudid every 4 hours thru the night for abdominal pain- pt appears to be comfortable this morning- however, she is requesting pain medications. Patient states that vomiting is gone but she still has some nausea. Discussed with patient again; her results of her CT and the effects that are being caused to her pancreas. She voiced understanding- we will continue to keep patient NPO this morning and give IVF for hydration- she is receiving protonix IV for abdominal discomfort, Zofran 4 mg IV for nausea and vomiting, and Dilaudid every 4 hrs. for abdominal pain. Patient is also noted to have an elevated blood pressure- we will monitor closely. Condition at Discharge: Stable Home Medications: Ambulatory Orders Medication Instructions Recorded Citalopram Hydrobromide [Celexa] 20 mg PO D 11/07/14 Trazodone HCl 50 mg PO HS 11/23/18 Lisinopril [Prinivil] 10 mg PO DAILY 30 Days #30 tablet 11/26/18 Ondansetron HCl Rapdis [Zofran Odt] 4 mg PO Q8 PRN #15 tab 11/26/18 Consultations this Visit: None Procedures this Visit: None Allergies/Adverse Reactions: Allergies Allergy/AdvReac Type Severity Reaction Status Date / Time Penicillins Allergy Severe Anaphylaxis Verified 11/26/18 13:33 Discharge Summary: Patient is a 53-year-old female who has done well during admission. She has been tolerating a regular diet with minimal abdominal discomfort and no nausea or vomiting starting yesterday. Her lab work is returning to baseline. She has tolerated decreasing IV pain medication from Dilaudid to Toradol. She has been up walking and using incentive spirometer- she had some scattered rhonchi throughout and we discussed stopping tobacco use. We had another discussion about no alcohol use. She is ready to go home today- she states that she is feeling much better and is ready to be in her own home. She has not required any antiemetics > 24 hrs, she has been receiving IV toradol for pain which has been controlling pain > 24 hrs. We discussed starting her back on Lisinopril 10 mg for HTN (she use to take this), Zofran as needed, and Tramadol prn pain. She is to follow up with her PCP next week. Hospital Course: IVF, IV antiemetics, IV pain medications, Incentive spirometer, nicotine patch, and an episode of hypoglycemia easily corrected - Final Diagnosis (1) Pancreatitis, acute Problems: Resolved- LIpase WNL- Discussed NO ALCOHOL USE Right or Left: Right (2) Dehydration Problems: Corrected- increase fluid intake (no caffeine- no alcohol) Right or Left: Right (3) Nausea & vomiting Problems: Corrected- tolerating a regular diet Right or Left: Right (4) Anxiety and depression Problems: Stable- continue home medications Right or Left: Right
[2018-11-26] MEDS: PANTOPRAZOLE SODIUM 80 MG in 0.9 % SODIUM CHLORIDE 50 ML IV SCH ×2 (06:21→06:43)
[2018-11-26] MEDS: CITALOPRAM HYDROBROMIDE 20 MG TABLET PO SCH (08:18)
[2018-11-26] MEDS: ENOXAPARIN SODIUM 30 MG/0.3 ML DISP.SYRIN SQ SCH (08:18)
[2018-11-26] MEDS: NICOTINE 14mg PATCH.TD24 TD SCH (08:18)
[2018-11-26 10:25] VITALS: BP 141/95
== END 2018-11-26 10:00 | disposition home or self-care (01) | DRG 440 ==
LOC: ED 20:39 → SOUTH 11-24 01:17
PROVIDERS: ADMIT Nurse Practitioner Family; ATTEND Family Medicine
DX: K85.90 Acute pancreatitis without necrosis or infection, unspecified (principal); E86.0 Dehydration; F32.9 Major depressive disorder, single episode, unspecified; F41.9 Anxiety disorder, unspecified; F17.210 Nicotine dependence, cigarettes, uncomplicated
CPT/HCPCS: 74177; 80053; 80320; 81002; 83690; 84484; 85025; 99283; J1170; J1650; J1885; J2405; J3010; J7030; Q9967; 99222; 99232; 99238; G0480; S1016

== ENCOUNTER 2018-11-26 13:06 | Emergency (ER) | payer SELFPAY ==
--- NOTE | 2018-11-26 13:45 | ED Physician Documentation ---
Abdominal Pain - HISTORIAN Historian: patient - HPI Stated Complaint: Upper abdominal pain Chief Complaint: Abdominal Pain Onset: other (she was just discharged from the hospital but states the pain just started about one hour ago ) Duration: constant Timing: still present Context: denies: out of country travel, bad food, recent trauma Severity: moderate Quality: pain, cramping, sharp Associated Symptoms: nausea, vomiting Exacerbated by: nothing Relieved by: nothing (she tried meds given to her at discharge "they didnt touch the pain" ) Further Comments: yes (She was admitted on 11.23.18 with elevated pancreatic enzymes. per her hospital note and her report she was discharged with resolution of pain. She states she at breakfast this am and felt fine. She went to [facility] to fill her RX and she started to have abdominal pain and her husbad went to work so her son went to get her and brought her to the ER for pain. She states the pain is all over. She states she has nausea. She took her pain meds and nausea med with no relief. She has not had any other meds.) - ROS CONST: no problems GI/: other (discharged after a two day hospital stay for elevated pancreatic enzymes that were normal on 11.25.18) EYES/ENT: none MS/SKIN/LYMPH: none NEURO/PSYCH: none - SOCIAL HX Smoking History: cigarettes Alcohol Use: occasionally Drug Use: none - FAMILY HX Family History: none - PAST HX Past History: pancreatitis Ischemic Bowel Risk Factors: none Other History: none Surgeries/Procedures: none Immunizations: UTD Home Medications: Ambulatory Orders Medication Instructions Recorded Citalopram Hydrobromide [Celexa] 20 mg PO D 11/07/14 Trazodone HCl 50 mg PO HS 11/23/18 Lisinopril [Prinivil] 10 mg PO DAILY 30 Days #30 tablet 11/26/18 Ondansetron HCl Rapdis [Zofran Odt] 4 mg PO Q8 PRN #15 tab 11/26/18 Allergies/Adverse Reactions: Allergies Allergy/AdvReac Type Severity Reaction Status Date / Time Penicillins Allergy Severe Anaphylaxis Verified 11/26/18 13:33 - VITAL SIGNS Vital Signs: Vital Signs Temp Pulse Resp BP Pulse Ox 77 18 166/87 94 11/26/18 18:05 11/26/18 18:05 11/26/18 18:05 11/26/18 18:05 - REVIEWED ASSESSMENTS Nursing Assessment Reviewed: Yes Vitals Reviewed: Yes Progress - Progress Progress: 1445: discussed current lab with hotel concierge provider [facility] - due to changes in pain will obtain CT and possible transfer due to possible surgical need DG 1450: discussed current findings and plan. She and son are agreeable DG 1539: states her pain is "a little" better - she is asking if she can still have more pain med. Will await CT results DG 1700: [facility] accepting transfer Dr Hodan BRO ED Results Lab/Radiology - Lab Results Lab Results: Lab Results 11/26/18 11/26/18 11/26/18 14:25 14:25 13:50 WBC RBC Hgb Hct MCV MCH MCHC RDW Plt Count Neut % (Auto) Lymph % (Auto) [place] % (Auto) Eos % (Auto) Baso % (Auto) Neut # (Auto) Lymph # (Auto) [place] # (Auto) Eos # (Auto) Baso # (Auto) Sodium Potassium Chloride Carbon Dioxide BUN Creatinine Estimated Creat Clear Est GFR ( Amer) Est GFR (Non-Af Amer) Glucose Calcium Total Bilirubin AST ALT Alkaline Phosphatase Total Protein Albumin Lipase Urine Color Yellow (YELLOW) Urine Appearance Clear (CLEAR) Urine pH 6.0 (5.0 - 8.0) Ur Specific [place] 1.025 (1.010-1.030) Urine Protein Negative mg/dL mg/dL (NEGATIVE) Urine Ketones 3+ mg/dL H mg/dL (NEGATIVE) Urine Occult Blood Trace-intact H (NEGATIVE) Urine Nitrite Negative (NEGATIVE) Urine Bilirubin Negative (NEGATIVE) Urine Urobilinogen 0.2 Eu Eu (0.2-1.0) Ur Leukocyte Esterase Negative (NEGATIVE) Urine Glucose Negative mg/dL mg/dL (NEGATIVE) Opiates Screen Non negative ng/mL H ng/mL (<300) Oxycodone Screen Negative ng/mL ng/mL (<100) Methadone Screen Negative ng/mL ng/mL (<200) Ur Barbiturates Screen Negative ng.mL ng.mL (<200) Tricyclic Antidepress Negative ng/mL ng/mL (<300) Phencyclidine Screen Negative ng/mL ng/mL (< 25) Amphetamines Screen Negative ng/mL ng/mL (<500) U Methamphetamines Scrn Negative ng/mL ng/mL (<500) MDMA Negative ng/mL ng/mL (<500) Benzodiazepines Screen Negative ng/mL ng/mL (<150) Urine Cocaine Screen Negative ng/mL ng/mL (<150) U Cannabinoids Screen Non negative ng/mL H ng/mL (< 50) Ethyl Alcohol < 10.0 mg/dL mg/dL (0.0-10.0) 11/26/18 11/26/18 13:50 13:50 WBC 8.10 K/ul K/ul (4.00-12.00) RBC 3.45 M/ul L M/ul (3.90-5.20) Hgb 11.9 g/dL L g/dL (12.0-16.0) Hct 35.9 % % (34.5-46.5) MCV 104.0 fl H fl (80.0-100.0) MCH 34.5 pg H pg (28.0-34.0) MCHC 33.1 g/dL g/dL (30.0-36.0) RDW 256.0 % H % (11.3-14.3) Plt Count 256 K/mm3 K/mm3 (130-400) Neut % (Auto) 78.6 % % (39.0-79.0) Lymph % (Auto) 11.4 % L % (16.0-50.0) [place] % (Auto) 4.1 % % (0.0-11.0) Eos % (Auto) 5.5 % % (0.0-6.8) Baso % (Auto) 0.4 (0.0-1.5) Neut # (Auto) 6.4 # k/uL # k/uL (1.4-7.7) Lymph # (Auto) 0.9 # k/uL # k/uL (0.6-4.0) [place] # (Auto) 0.3 # k/uL # k/uL (0.0-0.9) Eos # (Auto) 0.5 # k/uL # k/uL (0.0-0.6) Baso # (Auto) 0.0 # k/uL # k/uL (0.0-0.5) Sodium 137 mmol/L mmol/L (136-145) Potassium 3.1 mmol/L L mmol/L (3.5-5.1) Chloride 101 mmol/L mmol/L (98-107) Carbon Dioxide 21 mmol/L L mmol/L (22-30) BUN 4 mg/dL L mg/dL (7-17) Creatinine 0.47 mg/dL L mg/dL (0.52-1.04) Estimated Creat Clear 142 Est GFR ( Amer) > 60 (60 - ) Est GFR (Non-Af Amer) > 60 (60 - ) Glucose 88 mg/dL mg/dL (74-106) Calcium 8.5 mg/dL mg/dL (8.4-10.2) Total Bilirubin 0.5 mg/dL mg/dL (0.2-1.3) AST 36 U/L U/L (15-46) ALT 19 U/L U/L (13-69) Alkaline Phosphatase 103 U/L U/L (38-126) Total Protein 6.1 g/dL L g/dL (6.3-8.2) Albumin 3.7 g/dL g/dL (3.5-5.0) Lipase 1758 U/L H U/L (23-300) Urine Color Urine Appearance Urine pH Ur Specific [place] Urine Protein Urine Ketones Urine Occult Blood Urine Nitrite Urine Bilirubin Urine Urobilinogen Ur Leukocyte Esterase Urine Glucose Opiates Screen Oxycodone Screen Methadone Screen Ur Barbiturates Screen Tricyclic Antidepress Phencyclidine Screen Amphetamines Screen U Methamphetamines Scrn MDMA Benzodiazepines Screen Urine Cocaine Screen U Cannabinoids Screen Ethyl Alcohol - Radiology Radiology Impressions: CT abdomen and pelvis with contrast History: Abdominal pain and elevated lipase Technique: Helically acquired images were obtained from the hemidiaphragms the pelvic floor following IV contrast and comparison made with November 23, 2018. Findings: Similar to the prior CT, there is ascites adjacent to both the liver and spleen. There is now a greater degree of ascites within the right pericolic gutter and a mildly greater degree of ascites in the pelvis. A cystic lesion, consistent with a pseudocyst, at the pancreatic head has enlarged from a previous 3.8 x 4.3 cm to a current 4.0 x 4.8 cm. A cystic lesion which was previously noted between the distal body/tail of the pancreas and stomach is now much more complex in appearance. This lesion previously measured approximately 4.0 x 4.3 cm in greatest dimension and now measures approximately 5.0 x 4.0 cm. This lesion also is now complex appearance, probably hemorrhagic. There is additionally now a lesion along the greater curvature of the stomach measuring 3.5 x 2.2 cm, likely also a hemorrhagic pseudocyst. Previously, there was a small, simple pseudocyst at the pancreatic tail. This lesion is no longer simply cystic. This lesion previously measured 2.0 x 1.3 cm in greatest dimension and now measures 3.3 x 2.0 cm in greatest dimension. All other intra- abdominal and intrapelvic findings are stable compared with the recent CT. Impression: A pseudocyst previously noted at the pancreatic head has enlarged in size as described. A cystic lesion which was previously noted between the distal pancreas and stomach has increased in size and is now complex in appearance, consistent with a hemorrhagic c pseudocyst. There is additionally now a similar appearing lesion along the greater curvature of the stomach. Also, a simple pseudocyst previously noted of the pancreatic tail has enlarged and is now complex appearance, also consistent with a hemorrhagic pseudocyst. There is increased ascites within the right pericolic gutter and mildly increased ascites in the pelvis. Electronically signed on Nov 26, 2018 4:02:05 PM DOG FOOD SHREDDER OPERATOR by: Suad Jones - Orders Orders: ED Orders Category Date Time Status IV Started NOW Care 11/26/18 13:[address] ABD & PELVIS W/ CON Stat Exams 11/26/18 Taken ALCOHOL MEDICAL USE ONLY Stat Lab 11/26/18 13:50 Completed CBC/PLATELET/DIFF Stat Lab 11/26/18 13:50 Completed CMP Stat Lab 11/26/18 13:50 Completed LIPASE Stat Lab 11/26/18 13:50 Completed OPIATES,QUANT Routine Lab 11/26/18 14:25 Received UA MACRO DIP ONLY Routine Lab 11/26/18 14:25 Completed UDS [DRUG SCREEN URINE MEDICAL ONLY] Routine Lab 11/26/18 14:25 Completed 0.9 % Sodium Chloride [Normal Saline] 1,000 ml Med 11/26/18 13:41 Discontinued IV NOW 0.9 % Sodium Chloride [Normal Saline] 1,000 ml Med 11/26/18 16:30 Discontinued IV NOW HYDROmorphone HCL/PF [Dilaudid] Med 11/26/18 14:34 Discontinued 1 mg IVP NOW ONE HYDROmorphone HCL/PF [Dilaudid] Med 11/26/18 16:29 Discontinued 1 mg IVP NOW ONE HYDROmorphone HCL/PF [Dilaudid] Med 11/26/18 14:39 Discontinued 2 mg .ROUTE .STK-MED ONE Ketorolac Tromethamine [Toradol] Med 11/26/18 13:41 Discontinued 30 mg IV NOW ONE Ondansetron HCl/Pf [Zofran] Med 11/26/18 13:51 Discontinued 4 mg IVP NOW ONE Abdominal Pain Physical Exam - Physical Exam General Appearance: alert, mild distress EENT: eye inspection normal, ENT inspection normal, no signs of dehydration NECK: normal inspection RESPIRATORY: no resp distress, chest non-tender, breath sounds normal CVS: reg rate & rhythm, heart sounds normal ABDOMEN: soft, normal bowel sounds, tenderness, guarding. No: rebound, distended BACK: normal inspection, no CVA tenderness SKIN: warm/dry EXTREMITIES: non-tender, normal range of motion, no evidence of injury, no edema NEURO: oriented X3 Vital Signs: Vital Signs Temp Pulse Resp BP Pulse Ox 77 18 166/87 94 11/26/18 18:05 11/26/18 18:05 11/26/18 18:05 11/26/18 18:05 Discharge Clincal Impression: Pancreatitis, acute Qualifiers: Pancreatitis type: other Acute pancreatitis complication: unspecified Qualified Code(s): K85.80 - Other acute pancreatitis without necrosis or infection Referrals: Natasha Mcpherson MD [Primary Care Provider] - 2 Days Comments: Dr Pettit [facility] accepting transfer DG Condition: Fair Disposition: 02 XFER SHT-TRM HOSP Decision to Admit: NO Date of Decison to Admit: 11/26/18 Decision Time: 17:00
[2018-11-26] MEDS: 0.9 % SODIUM CHLORIDE 1,000 ML IV ONE ×2 (13:50→16:51)
[2018-11-26] MEDS: KETOROLAC TROMETHAMINE 30 MG/1ML VIAL IV ONE (14:00)
[2018-11-26] MEDS: ONDANSETRON HCL/PF 4 MG/ 2ML VIAL IVP ONE (14:05)
[2018-11-26 14:13] LABS: BASOPHILS % 0.4 (0.0-1.5); EOSINOPHILS % 5.5 % (0.0-6.8); MEAN CORPUSCULAR HEMOGLOBIN 34.5 pg (28.0-34.0); MONOCYTES % 4.1 % (0.0-11.0); NEUTROPHILS # 6.4 # k/uL (1.4-7.7)
[2018-11-26 14:22] LABS: eGFR (Non-African) > 60
[2018-11-26] MEDS: HYDROmorphone HCL/PF 2 MG/ML VIAL ONE (14:47)
[2018-11-26] MEDS: HYDROmorphone HCL/PF 1 MG/ML VIAL IVP ONE ×2 (14:47→16:51)
[2018-11-26 18:03] LABS: CANNABINOIDS NON NEGATIVE ng/mL (< 50); METHYLENEDIOXYMETHAMPHETAMINE NEGATIVE ng/mL (<500)
[2018-11-26 18:08] VITALS: BP 166/87
[2018-11-26 18:26] LABS: APPEARANCE,URINE CLEAR (CLEAR); COLOR,URINE YELLOW (YELLOW); OCCULT BLOOD,URINE TRACE-INTACT (NEGATIVE); UROBILINOGEN URINE 0.2 Eu (0.2-1.0)
--- NOTE | 2018-11-27 05:31 | Diagnostic Imaging Report ---
BAMBI RUIZ [facility] [address] [address] Report Submission Date: Nov 26, 2018 4:02:05 PM CEREAL SUPERVISOR Patient Study Name: SESAR HANSON Date: Nov 26, 2018 3:08:22 PM CEREAL SUPERVISOR Modality Type: CT\SR Gender: F Description: CT ABD PELVIS W/ CON : 61 Institution: [facility] Physician: BAMBI RUIZ CT abdomen and pelvis with contrast History: Abdominal pain and elevated lipase Technique: Helically acquired images were obtained from the hemidiaphragms the pelvic floor following IV contrast and comparison made with November 23, 2018. Findings: Similar to the prior CT, there is ascites adjacent to both the liver and spleen. There is now a greater degree of ascites within the right pericolic gutter and a mildly greater degree of ascites in the pelvis. A cystic lesion, consistent with a pseudocyst, at the pancreatic head has enlarged from a previous 3.8 x 4.3 cm to a current 4.0 x 4.8 cm. A cystic lesion which was previously noted between the distal body/tail of the pancreas and stomach is now much more complex in appearance. This lesion previously measured approximately 4.0 x 4.3 cm in greatest dimension and now measures approximately 5.0 x 4.0 cm. This lesion also is now complex appearance, probably hemorrhagic. There is additionally now a lesion along the greater curvature of the stomach measuring 3.5 x 2.2 cm, likely also a hemorrhagic pseudocyst. Previously, there was a small, simple pseudocyst at the pancreatic tail. This lesion is no longer simply cystic. This lesion previously measured 2.0 x 1.3 cm in greatest dimension and now measures 3.3 x 2.0 cm in greatest dimension. All other intra-abdominal and intrapelvic findings are stable compared with the recent CT. Impression: A pseudocyst previously noted at the pancreatic head has enlarged in size as described. A cystic lesion which was previously noted between the distal pancreas and stomach has increased in size and is now complex in appearance, consistent with a hemorrhagic c pseudocyst. There is additionally now a similar appearing lesion along the greater curvature of the stomach. Also, a simple pseudocyst previously noted of the pancreatic tail has enlarged and is now complex appearance, also consistent with a hemorrhagic pseudocyst. There is increased ascites within the right pericolic gutter and mildly increased ascites in the pelvis. Electronically signed on Nov 26, 2018 4:02:05 PM CEREAL SUPERVISOR by: Suad LIANG
== END 2018-11-26 18:00 | disposition short-term general hospital (02) ==
LOC: ED 13:06
DX: K85.80 Other acute pancreatitis without necrosis or infection (principal)
CPT/HCPCS: 36415; 74177; 80053; 80320; 80377; 81002; 83690; 85025; 96374; 96375; 96376; 99285; J1170; J1885; J2405; J7030; Q9967; G0480; G0481; S1016